=== PATIENT | male | born 1970 | race Caucasian/White ===

== ENCOUNTER 2016-10-08 13:51 | Emergency (ER) | payer MEDICAID, OTHER ==
[~2016-10-08] VITALS: Ht 180.3 cm; Wt 81.8 kg
[~2016-10-08 13:51] MED LIST: ASEN5TAB7 SL
[2016-10-08 14:07] VITALS: BP 127/81; PULSE 101; RESP 16; O2SAT 97
--- NOTE | 2016-10-08 14:16 | ED.REPORT ---
HPI-Psychiatric Illness Date of Service Oct 08, 2016 ED Provider: Nic Alfaro DO Pt is a 45 y/o male who presents to the ED via police due to suicidal ideation with a plan. He states that today is the anniversary of his son's 7 years ago which has caused him to be very depressed. He told others that he wanted to go to jump [place] bridge [place] to be with his son. He talked to a counselor at [facility] for about an hour, where he was involuntarily brought here for a mental health evaluation. Pt denies homicidal or suicidal ideation now because it is "selfish" and would hurt his loved ones. His reports that he said he was going to lie to the counselor at [facility] and say that he was "okay" . Pt denies drug use, but did drink alcohol and is intoxicated. He denies any physical symptoms. Nursing Notes Stated Complaint: PSYCH Chief Complaint: Psychiatric Complaint Nursing Notes Reviewed: Yes Allergies: Coded Allergies: No Known Allergies (Verified Allergy, Unknown, 04/05/15) Miscellaneous Medications Asenapine (Saphris) 5 Mg Tab.subl 5 MG SL General Time Seen by MD: 14:13 Chief Complaint Suicidal ideation Hx Obtained From: Patient, Spouse, Police Arrived By: Police Onset Occurred: Onset unknown Symptom Duration: Since onset Progression Since Onset: Constant Severity: Current: No pain currently Severity: Maximum: No pain Recent Healthcare: No recent doctor visit, No recent hospitalization Similar Sx Previous: No Risk-Psychiatric Illness Suicide Risk Stratification RF Statements: Risk factors reviewed Past Medical History Past Medical History Denies Past Surgical History Denies Smoking History Current Every Day Smoker Social History Alcohol Use: "Social" Drug Use: Denies drug use Occupation lives by self, no work or school Ambulatory Status Independent Review of Systems Psychiatric: Reports: Depression, Stress, Suicidal ideation, Denies: Agitation, Confusion, Delusional, Hallucinations, auditory, Hallucinations, visual, Homicidal ideation, Hostile Complete sys rev & neg: except as marked. Physical Exam Initial Vital Signs Vital Signs (First) Date Time Temp Pulse Resp B/P Pulse Ox O2 Delivery O2 Flow Rate FiO2 10/08/16 14:07 36.2 101 16 127/81 97 Room Air Initial VS: Reviewed, Vital signs normal Head / Eyes: Atraumatic, Normocephalic ENT: Mucous membranes moist, Conjunctiva normal Neck: Supple, Full range of motion Respiratory: No respiratory distress Abdomen / GI: No distention Lymphatic: No lymphadenopathy Extremities: Vascular intact, Neuro intact Skin: Warm, Dry, No cyanosis General/Constitutional: Awake, Alert, No acute distress, Cooperative, Not toxic appearing Appearance / Presentation: Positive: Intoxicated Neurologic: Oriented X3, Speech NL, No motor deficits, Memory NL Psychiatric: Not homicidal, No hallucinations Abnormal Mood/Affect: Positive: Flat affect Thoughts of suicide with plan to jump off bridge although at this time he states he has no intent to harm himself or others Interpretation & Diagnostics Lab Results Interpretation Lab Results Interpretation: Urine tox screen positive for: PCP Breathalyzer: 0.124 Re-Eval/Medical Decision Med Decision/Clinical Course Patient arrives intoxicated after having made suicidal statements. Once legally sober he denies suicidal intent now and contracts for safety. Currently awaiting social work evaluation. Care transferred to Dr. Mack. Source of Hx: Old records Re-Evaluation/Progress : Time of Eval: 18:00 Patient Status: Condition improved Re-Evaluation/Progress Note: Pt rechecked. Pt's MAXINE was .081. Counseled Regarding: Diagnosis, Lab results, Need for follow-up, When/why to return to ED Discharge & Departure Impression: Primary Impression: Suicidal ideation Additional Impression: Alcohol intoxication Complication of substance-induced condition: with unspecified complication Qualified Code: F10.129 - Alcohol abuse with intoxication, unspecified )( Condition at Discharge: No danger to self, No danger to others, No suicidal ideation, No homicidal ideation Disposition: Home Discharge Condition All VS Reviewed: Yes Condition: Stable Referrals: [facility] PRISCILLA FARRIS (PCP) Care Transferred to: lou Care Transferred at: 19:20 Scribe Attestation Portions of this note were transcribed by Yudi Teague and Missael Amaral. I, Dr. Alfaro, personally performed the history, physical exam and medical decision-making; I reviewed and confirmed the accuracy of the information in the transcribed note. copies to: [facility] PRISCILLA FARRIS Timothy Gus FAULKNER Oct 08, 2016 14:16 Yudi Teague Oct 08, 2016 14:32 MISSAEL AMARAL Oct 08, 2016 16:30
[2016-10-08 19:20] VITALS: BP 144/82; PULSE 94; RESP 20; O2SAT 99
[2016-10-08 20:06] LABS: BASOPHILS % (AUTO) 1.1 % (0-3); EOSINOPHILS % (AUTO) 2.6 % (0-5); MONOCYTES % (AUTO) 13.8 % (4-12); Mean Corpuscular Hemoglobin 31.7 pg (27.0-35.0); Mean Corpuscular Volume 91.1 fL (81-100); Platelet Count 204 bil/L (150-400)
[2016-10-08 22:50] VITALS: BP 138/77; RESP 16; O2SAT 98
[2016-10-08 23:08] VITALS: BP 138/77; PULSE 94; RESP 16; O2SAT 98
== END 2016-10-08 23:09 | disposition home or self-care (01) ==
LOC: SED 14:47
DX: R45.851 Suicidal ideations (principal); F10.229 Alcohol dependence with intoxication, unspecified; F17.200 Nicotine dependence, unspecified, uncomplicated; Z63.4 Disappearance and death of family member